=== PATIENT | female | born 1995 | race Caucasian/White ===

== ENCOUNTER 2019-04-18 11:15 | Emergency (ER) | payer SELFPAY ==
[2019-04-18] MEDS ORDERED: NA CHLORIDE 0.9% 1,000 ML ONE (11:54)
[2019-04-18 12:23] LABS: Absolute Lymphocytes (CBC) 1.9 K/uL (0.7-4.9); Basophils % 0.6 % (0-1.3); Hematocrit 42.7 % (36.0-45.0); Lymphocytes % 19.3 % (15.3-44.8); MPV 8.3 fL (7.6-11.3)
[2019-04-18 12:24] LABS: Urine Bacteria 20-50 /HPF (<20); Urine RBC >50 /HPF (NONE SEEN)
[2019-04-18 12:25] LABS: Urine Culture Reflex Order NOT NEEDED
[2019-04-18 12:44] LABS: Bilirubin Direct 0.1 mg/dL (0-0.2); Bilirubin Total 0.4 mg/dL (0.2-1.0); Potassium 4.3 mmol/L (3.5-5.1); Protein, Total 7.8 g/dL (6.4-8.2)
[2019-04-18 13:31] LABS: Urine Blood 3+ (NEG); Urine Glucose NEGATIVE (NEG); Urine Protein 2+ (NEG); Urine Specific Gravity 1.025 (1.005-1.030); Urine pH 6.5 (5.0-7.0)
--- NOTE | 2019-04-18 13:36 | RAD REPORT ---
EXAM DESCRIPTION: CT - Abdomen Pelvis W Contrast - 04/18/2019 1:12 pm CLINICAL HISTORY: Abdominal pain with dysuria COMPARISON: none. TECHNIQUE: Computed axial tomography of the abdomen pelvis was obtained. 100 cc Isovue-300 was admin istered intravenously. Oral contrast was not requested which limits evaluation of bowel. All CT scans are performed using dose optimization technique as appropriate and may include automated exposure control or mA/KV adjustment according to patient size. FINDINGS: Mild fatty liver Spleen, pancreas, adrenal and kidneys appear unremarkable. There is no evidence of diverticulitis. IMPRESSION: No acute abnormality is displayed.
--- NOTE | 2019-04-18 14:21 | ER ---
Nurse's Notes [facility] Name: Sharona Jovel Age: 23 yrs Sex: Female : 1995 Arrival Date: 04/18/2019 Time: 11:16 Bed 19 Private MD: Diagnosis: Urinary tract infection, site not specified Presentation: 04/18 11:27 Presenting complaint: Patient states: painful urination, dark urine, and blood in ch urine, started yesterday. I have had UTI before but nothing like this. Transition of care: patient was not received from another setting of care. Onset of symptoms was April 17, 2019. Risk Assessment: Do you want to hurt yourself or someone else? Patient reports no desire to harm self or others. Initial Sepsis Screen: Does the patient meet any 2 criteria? No. Patient's initial sepsis screen is negative. Does the patient have a suspected source of infection? No. Patient's initial sepsis screen is negative. Care prior to arrival: None. 11:27 Method Of Arrival: Ambulatory 11:27 Acuity: BONNIE 3 Triage Assessment: 11:29 General: Appears in no apparent distress. comfortable, Behavior is calm, cooperative, ch appropriate for age. Pain: Complains of pain in groin. 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 - Social history:: Smoking status: Patient/guardian denies using tobacco, Patient/guardian denies using alcohol, street drugs. - Ebola Screening: : Patient negative for fever greater than or equal to 101.5 degrees Fahrenheit, and additional compatible Ebola Virus Disease symptoms Patient denies exposure to infectious person Patient denies travel to an Ebola-affected area in the 21 days before illness onset No symptoms or risks identified at this time. Screenin:45 Abuse screen: Denies threats or abuse. Denies injuries from another. Nutritional hb screening: No deficits noted. Tuberculosis screening: No symptoms or risk factors identified. Fall Risk None identified. Assessment: 11:45 General: Appears in no apparent distress. Behavior is calm, cooperative. Pain: Pain hb currently is 8 out of 10 on a pain scale. Neuro: Level of Consciousness is awake, alert, obeys commands, Oriented to person, place, time, situation. Cardiovascular: Heart tones S1 S2 present Capillary refill < 3 seconds Patient's skin is warm and dry. Respiratory: Airway is patent Respiratory effort is even, unlabored, Respiratory pattern is regular, symmetrical, Breath sounds are clear bilaterally. GI: No signs and/or symptoms were reported involving the gastrointestinal system. : Reports pain with urination. EENT: No signs and/or symptoms were reported regarding the EENT system. Derm: Skin is intact, is healthy with good turgor, Skin is pink, warm \T\ dry. Musculoskeletal: No signs and/or symptoms reported regarding the musculoskeletal system. 12:45 Reassessment: Patient appears in no apparent distress at this time. Patient and/or hb family updated on plan of care and expected duration. Pain level reassessed. Patient is alert, oriented x 3, equal unlabored respirations, skin warm/dry/pink. 13:45 Reassessment: Patient appears in no apparent distress at this time. No changes from previously documented assessment. Patient and/or family updated on plan of care and expected duration. Pain level reassessed. Patient is alert, oriented x 3, equal unlabored respirations, skin warm/dry/pink. Vital Signs: 11:26 BP 118 / 86; Pulse 92; Resp 15; Temp 97.4(O); Pulse Ox 99% on R/A; Weight 95.25 kg; Height 5 ft. 6 in. (167.64 cm); Pain 8/10; 12:00 BP 117 / 78; Pulse 86; Resp 16; Pulse Ox 100% on R/A; hb 13:00 BP 114 / 74; Pulse 75; Resp 16; Pulse Ox 99% on R/A; hb 14:00 BP 121 / 75; Pulse 78; Resp 15; Pulse Ox 100% on R/A; hb 11:26 Body Mass Index 33.89 (95.25 kg, 167.64 cm) ED Course: 11:16 Patient arrived in ED. as 11:27 Triage completed. 11:29 Arm band placed on left wrist. Patient placed in an exam room, on a stretcher. 11:31 Pancho Peña NP is PHCP. pm1 11:31 Santiago Levy MD is Attending Physician. pm1 11:36 Dixie Galeas RN is Primary Nurse. hb 12:15 Inserted saline lock: 20 gauge in left antecubital area, using aseptic technique. hb ,using aseptic technique. by Ron BAZAN Blood collected. 12:18 Patient has correct armband on for positive identification. Bed in low position. Call hb light in reach. Side rails up X 1. 13:14 CT Abd/Pelvis - IV Contrast Only In Process Unspecified. EDMS 14:42 No provider procedures requiring assistance completed. IV discontinued, intact, hb bleeding controlled, No redness/swelling at site. Pressure dressing applied. Administered Medications: 12:17 Drug: NS 0.9% 1000 ml Route: IV; Rate: 1000 ml; Site: left antecubital; hb 13:15 Follow up: Response: No adverse reaction; IV Status: Completed infusion; IV Intake: hb 1000ml Intake: 13:15 IV: 1000ml; Total: 1000ml. hb Outcome: 14:19 Discharge ordered by MD. pm1 14:42 Discharged to home ambulatory. hb 14:42 Condition: stable 14:42 Discharge instructions given to patient, Instructed on discharge instructions, follow up and referral plans. medication usage, Demonstrated understanding of instructions, follow-up care, medications, Prescriptions given X 2. 14:43 Patient left the ED. hb Addendum: 04/22/2019 17:50 Addendum: Culture Results: Positive urine culture. Bacteria is resistant to, has s s intermediate sensitivity, or is not tested against prescribed antibiotics. Report given to ANGEL for further evaluation and then to chief warden for follow up with patient. Phone call Attempt #1 called patient to discuss culture report. Patient verbalizes understanding importance of following up with PCP as soon as possible in order to receive appropriate treatment for ESBL. Patient states she recently moved and will try to call around tomorrow to clinic for appointment and will call back with fax number in order to obtain culture report. Signatures: Dispatcher [employer] EDSC Jacquelyn Navas RN RN ch Martinez, Amelia as Smirch, Shelby, RN RN Pancho Peña NP SEED SPECIALIST pm1 Dixie Galeas RN RN Corrections: (The following items were deleted from the chart) 04/18 14:43 14:42 Patient did not have IV access during this emergency room visit. hb hb
--- NOTE | 2019-04-18 14:21 | EDPHYS ---
Physician Documentation [facility] Name: Sharona Jovel Age: 23 yrs Sex: Female : 1995 Arrival Date: 04/18/2019 Time: 11:16 Bed 19 Private MD: ED Physician Santiago Levy HPI: 04/18 12:36 This 23 yrs old Female presents to ER via Ambulatory with complaints of pm1 Urinary Problem. 12:36 The patient presents with urinary symptoms, dysuria. Onset: The symptoms/episode pm1 began/occurred yesterday. Modifying factors: The symptoms are alleviated by nothing, the symptoms are aggravated by urinating. Associated signs and symptoms: Pertinent positives: dysuria, hematuria, Pertinent negatives: fever, vaginal bleeding. Severity of symptoms: in the emergency department the symptoms are actually worse. The patient is sexually active, does not use protection during intercourse. The patient has experienced similar episodes in the past, a few times. The patient has not recently seen a physician. 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 - Social history:: Smoking status: Patient/guardian denies using tobacco, Patient/guardian denies using alcohol, street drugs. - Ebola Screening: : Patient negative for fever greater than or equal to 101.5 degrees Fahrenheit, and additional compatible Ebola Virus Disease symptoms Patient denies exposure to infectious person Patient denies travel to an Ebola-affected area in the 21 days before illness onset No symptoms or risks identified at this time. ROS: 12:36 Positive for burning with urination. pm1 12:36 Constitutional: Negative for fever, chills, and weight loss, Eyes: Negative for injury, pain, redness, and discharge, ENT: Negative for injury, pain, and discharge, Neck: Negative for injury, pain, and swelling, Cardiovascular: Negative for chest pain, palpitations, and edema, Respiratory: Negative for shortness of breath, cough, wheezing, and pleuritic chest pain. 12:36 Back: Negative for injury and pain, MS/Extremity: Negative for injury and deformity, Skin: Negative for injury, rash, and discoloration, Neuro: Negative for headache, weakness, numbness, tingling, and seizure. 12:36 Abdomen/GI: Positive for abdominal pain, of the suprapubic area, Negative for nausea, vomiting, and diarrhea. Exam: 12:36 Constitutional: This is a well developed, well nourished patient who is awake, alert, pm1 and in no acute distress. Head/Face: Normocephalic, atraumatic. Eyes: Pupils equal round and reactive to light, extra-ocular motions intact. Lids and lashes normal. Conjunctiva and sclera are non-icteric and not injected. Cornea within normal limits. Periorbital areas with no swelling, redness, or edema. ENT: Nares patent. No nasal discharge, no septal abnormalities noted. Tympanic membranes are normal and external auditory canals are clear. Oropharynx with no redness, swelling, or masses, exudates, or evidence of obstruction, uvula midline. Mucous membranes moist. Neck: Trachea midline, no thyromegaly or masses palpated, and no cervical lymphadenopathy. Supple, full range of motion without nuchal rigidity, or vertebral point tenderness. No Meningismus. Chest/axilla: Normal chest wall appearance and motion. Nontender with no deformity. No lesions are appreciated. Cardiovascular: Regular rate and rhythm with a normal S1 and S2. No gallops, murmurs, or rubs. Normal PMI, no JVD. No pulse deficits. Respiratory: Lungs have equal breath sounds bilaterally, clear to auscultation and percussion. No rales, rhonchi or wheezes noted. No increased work of breathing, no retractions or nasal flaring. 12:36 Back: No spinal tenderness. No costovertebral tenderness. Full range of motion. Skin: Warm, dry with normal turgor. Normal color with no rashes, no lesions, and no evidence of cellulitis. MS/ Extremity: Pulses equal, no cyanosis. Neurovascular intact. Full, normal range of motion. 12:36 Abdomen/GI: Inspection: abdomen appears normal, Bowel sounds: normal, Palpation: soft, mild abdominal tenderness, in the suprapubic area, mass, is not appreciated, rebound tenderness, is not appreciated. 12:36 Neuro: Orientation: is normal, Motor: is normal, moves all fours. Vital Signs: 11:26 BP 118 / 86; Pulse 92; Resp 15; Temp 97.4(O); Pulse Ox 99% on R/A; Weight 95.25 kg; ch Height 5 ft. 6 in. (167.64 cm); Pain 8/10; 12:00 BP 117 / 78; Pulse 86; Resp 16; Pulse Ox 100% on R/A; hb 13:00 BP 114 / 74; Pulse 75; Resp 16; Pulse Ox 99% on R/A; hb 14:00 BP 121 / 75; Pulse 78; Resp 15; Pulse Ox 100% on R/A; hb 11:26 Body Mass Index 33.89 (95.25 kg, 167.64 cm) ch MDM: 11:31 Patient medically screened. pm1 14:18 Data reviewed: vital signs. Data interpreted: Pulse oximetry: on room air is 100 %. pm1 Interpretation: normal. Counseling: I had a detailed discussion with the patient and/or guardian regarding: the historical points, exam findings, and any diagnostic results supporting the discharge/admit diagnosis, lab results, radiology results, the need for outpatient follow up, to return to the emergency department if symptoms worsen or persist or if there are any questions or concerns that arise at home. 04/18 11:35 Order name: Urine Microscopic Only; Complete Time: 12:41 04/18 11:35 Order name: Urine Culture 04/18 11:45 Order name: Basic Metabolic Panel; Complete Time: 13:45 pm1 04/18 11:45 Order name: CBC with Diff; Complete Time: 12:41 pm04/18 11:45 Order name: Creatinine for Radiology; Complete Time: 13:45 pm04/18 11:45 Order name: Hepatic Function; Complete Time: 13:45 pm04/18 11:35 Order name: Urine Dipstick-Ancillary (obtain specimen); Complete Time: 11:45 iw 04/18 11:45 Order name: Lipase; Complete Time: 13:45 pm1 04/18 11:45 Order name: IV Saline Lock; Complete Time: 12:17 pm04/18 11:45 Order name: Labs collected and sent; Complete Time: 12:17 pm04/18 11:45 Order name: CT Abd/Pelvis - IV Contrast Only; Complete Time: 14:09 pm1 04/18 12:18 Order name: Urine Dipstick--Ancillary (enter results) bd 04/18 12:18 Order name: Urine --Ancillary (enter results) bd 04/18 11:45 Order name: Urine Test (obtain specimen); Complete Time: 11:45 pm1 Administered Medications: 12:17 Drug: NS 0.9% 1000 ml Route: IV; Rate: 1000 ml; Site: left antecubital; hb 13:15 Follow up: Response: No adverse reaction; IV Status: Completed infusion; IV Intake: hb 1000ml Disposition: 16:24 Co-signature as Attending Physician, Santiago Levy MD. rn Disposition: 04/18/19 14:19 Discharged to Home. Impression: Urinary tract infection, site not specified. - Condition is Stable. - Discharge Instructions: Urinary Tract Infection, Adult. - Prescriptions for Pyridium 200 mg Oral Tablet - take 1 tablet by ORAL route every 8 hours for 3 days; 9 tablet. Bactrim DS 800- 160 mg Oral Tablet - take 1 tablet by ORAL route every 12 hours for 10 days; 20 tablet. - Medication Reconciliation Form, Thank You Letter, Antibiotic Education, Prescription Opioid Use form. - Follow up: Emergency Department; When: As needed; Reason: Worsening of condition. Follow up: Private Physician; When: 2 - 3 days; Reason: Recheck today's complaints, Continuance of care, Re-evaluation by your physician. - Problem is new. - Symptoms have improved. Signatures: Dispatcher [employer] EDMS Jacquelyn Navas RN RN Nuris Blake RN RN iw Nieto, Roman, MD MD rn Marinas, Patrick, JUJU PATCH PRESS OPERATOR pm1 Dixie Galeas RN RN hb Corrections: (The following items were deleted from the chart) 14:43 14:19 04/18/2019 14:19 Discharged to Home. Impression: Urinary tract infection, site hb not specified. Condition is Stable. Forms are Medication Reconciliation Form, Thank You Letter, Antibiotic Education, Prescription Opioid Use. Follow up: Emergency Department; When: As needed; Reason: Worsening of condition. Follow up: Private Physician; When: 2 - 3 days; Reason: Recheck today's complaints, Continuance of care, Re-evaluation by your physician. Problem is new. Symptoms have improved. pm1
== END 2019-04-18 14:43 | disposition home or self-care (01) ==
LOC: ER 11:15
DX: N39.0 Urinary tract infection, site not specified (principal); Z88.1 Allergy status to other antibiotic agents
CPT/HCPCS: 36415; 74177; 80048; 80076; 81003; 81015; 81025; 83690; 85025; 87077; 87086; 87088; 87186; 96360; 99284; J7030; Q9967

== ENCOUNTER 2019-04-23 13:23 | Emergency (ER) | payer SELFPAY ==
--- NOTE | 2019-04-23 14:50 | EDPHYS ---
Physician Documentation [facility] Name: Sharona Jovel Age: 23 yrs Sex: Female : 1995 Arrival Date: 04/23/2019 Time: 13:26 Bed 19 Private MD: ED Physician Santiago Levy HPI: 04/23 14:30 This 23 yrs old Female presents to ER via Ambulatory with complaints of jmm Urinary Problem. 14:30 The patient presents with urinary symptoms, dysuria. Onset: The symptoms/episode jmm began/occurred gradually, 2 week(s) ago. Modifying factors: The symptoms are alleviated by nothing, the symptoms are aggravated by nothing. Associated signs and symptoms: Pertinent negatives: fever. This is a 23 year old female with no chronic medical conditions that presents to the ED with complaints of ongoing dysura for the past 2 weeks. Patient was evaluated Monday and prescribed bactrim. Patient currently denies fever, vomiting, flank pain, or abdominal pain. . 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 - Social history:: Smoking status: Patient/guardian denies using tobacco. - Ebola Screening: : No symptoms or risks identified at this time. ROS: 14:30 Constitutional: Negative for fever, chills, and weight loss, Cardiovascular: Negative jmm for chest pain, palpitations, and edema, Respiratory: Negative for shortness of breath, cough, wheezing, and pleuritic chest pain, Abdomen/GI: Negative for abdominal pain, nausea, vomiting, diarrhea, and constipation. 14:30 : Positive for urinary symptoms. 14:30 All other systems are negative. Exam: 14:30 Constitutional: This is a well developed, well nourished patient who is awake, alert, jmm and in no acute distress. Head/Face: atraumatic. Eyes: EOMI, no conjunctival erythema appreciated ENT: Moist Mucus Membranes Neck: Trachea midline, Supple Chest/axilla: Normal chest wall appearance and motion. Cardiovascular: Regular rate and rhythm. No edema appreciated Respiratory: Normal respirations, no respiratory distress appreciated Abdomen/GI: Non distended, soft Back: Normal ROM Skin: General appearance color normal MS/ Extremity: Moves all extremities, no obvious deformities appreciated, no edema noted to the lower extremities Neuro: Awake and alert, normal gait Psych: Behavior is normal, Mood is normal, Patient is cooperative and pleasant 14:30 Back: CVA tenderness, is absent. Vital Signs: 13:41 BP 130 / 82; Pulse 74; Resp 16; Temp 97.4; Pulse Ox 100% on R/A; Weight 95.25 kg; la1 Height 5 ft. 2 in. (157.48 cm); 15:05 BP 114 / 75; Pulse 85; Resp 16; Temp 97.6(TE); Pulse Ox 94% ; mh5 13:41 Body Mass Index 38.41 (95.25 kg, 157.48 cm) la1 MDM: 14:30 Patient medically screened. [facility] 14:47 Data reviewed: vital signs, nurses notes. Counseling: I had a detailed discussion with justice the patient and/or guardian regarding: the historical points, exam findings, and any diagnostic results supporting the discharge/admit diagnosis, lab results, the need for outpatient follow up, to return to the emergency department if symptoms worsen or persist or if there are any questions or concerns that arise at home. ED course: Patient is alert and non toxic in appearance in the ED. Patient prescribed oral abx based on culture results. . Administered Medications: 15:15 Drug: DiFLUcan 150 mg Route: PO; iw 15:20 Follow up: Response: No adverse reaction ph Disposition: 18:31 Co-signature as Attending Physician, Santiago Levy MD. rn Disposition: 04/23/19 14:49 Discharged to Home. Impression: Urinary tract infection, site not specified. - Condition is Stable. - Discharge Instructions: Urinary Tract Infection, Adult. - Prescriptions for Macrobid 100 mg Oral Capsule - take 1 capsule by ORAL route every 12 hours for 10 days; 20 capsule. - Medication Reconciliation Form, Thank You Letter, Antibiotic Education, Prescription Opioid Use form. - Follow up: Private Physician; When: 2 - 3 days; Reason: Recheck today's complaints, Continuance of care, Re-evaluation by your physician. Signatures: Carlos Doan PA PA jmm Williams, Irene, RN RN iw Nieto, Roman, MD MD rn Attema, Maciel, RN RN la1 Jo Marques RN ph Corrections: (The following items were deleted from the chart) 15:15 14:49 04/23/2019 14:49 Discharged to Home. Impression: Urinary tract infection, site iw not specified. Condition is Stable. Forms are Medication Reconciliation Form, Thank You Letter, Antibiotic Education, Prescription Opioid Use. Follow up: Private Physician; When: 2 - 3 days; Reason: Recheck today's complaints, Continuance of care, Re-evaluation by your physician. m
--- NOTE | 2019-04-23 14:50 | ER ---
Nurse's Notes [facility] Name: Sharona Jovel Age: 23 yrs Sex: Female : 1995 Arrival Date: 04/23/2019 Time: 13:26 Bed 19 Private MD: Diagnosis: Urinary tract infection, site not specified Presentation: 04/23 13:42 Presenting complaint: Patient states: I think I need IV antiobiotics for my UTI. They la1 should have the culture report here. Transition of care: patient was not received from another setting of care. Onset of symptoms was April 23, 2019. Risk Assessment: Do you want to hurt yourself or someone else? Patient reports no desire to harm self or others. Initial Sepsis Screen: Does the patient meet any 2 criteria? No. Patient's initial sepsis screen is negative. Does the patient have a suspected source of infection? No. Patient's initial sepsis screen is negative. Care prior to arrival: None. 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 - Social history:: Smoking status: Patient/guardian denies using tobacco. - Ebola Screening: : No symptoms or risks identified at this time. Screenin:00 Abuse screen: Denies threats or abuse. Denies injuries from another. Nutritional ph screening: No deficits noted. Tuberculosis screening: No symptoms or risk factors identified. Fall Risk None identified. Assessment: 15:00 General: Appears in no apparent distress. uncomfortable, well groomed, Behavior is ph calm, cooperative, appropriate for age. Pain: Complains of pain in suprapubic area. Neuro: Level of Consciousness is awake, alert, obeys commands, Oriented to person, place, time, situation. Cardiovascular: Capillary refill < 3 seconds in bilateral fingers Patient's skin is warm and dry. Respiratory: Airway is patent Respiratory effort is even, unlabored. GI: Patient currently denies diarrhea, nausea, vomiting. : Reports burning with urination, pain in suprapubic area urinary frequency, vaginal itching. Derm: Skin is intact, is healthy with good turgor, Skin is pink, warm \\T\\ dry. Musculoskeletal: Circulation, motion, and sensation intact. Range of motion: intact in all extremities. Vital Signs: 13:41 BP 130 / 82; Pulse 74; Resp 16; Temp 97.4; Pulse Ox 100% on R/A; Weight 95.25 kg; la1 Height 5 ft. 2 in. (157.48 cm); 15:05 BP 114 / 75; Pulse 85; Resp 16; Temp 97.6(TE); Pulse Ox 94% ; mh5 13:41 Body Mass Index 38.41 (95.25 kg, 157.48 cm) ri1 ED Course: 13:26 Patient arrived in ED. mr 13:40 Arm band placed on left wrist. la1 13:42 Triage completed. ri1 14:21 Jo Marques RN is Primary Nurse. ph 14:24 Carlos Doan PA is PHCP. [facility] 14:24 Santiago Levy MD is Attending Physician. [facility] 15:05 Patient has correct armband on for positive identification. Bed in low position. Call 5 light in reach. Pulse ox on. NIBP on. 15:15 No provider procedures requiring assistance completed. Patient did not have IV access ph during this emergency room visit. Administered Medications: 15:15 Drug: DiFLUcan 150 mg Route: PO; iw 15:20 Follow up: Response: No adverse reaction ph Outcome: 14:49 Discharge ordered by . [facility] 15:15 Patient left the ED. iw 15:15 Discharged to home ambulatory. ph 15:15 Condition: good 15:15 Discharge instructions given to patient, Instructed on discharge instructions, follow up and referral plans. medication usage, Demonstrated understanding of instructions, follow-up care, medications, Prescriptions given X 1. Signatures: Carlos Doan PA PA jmm Rivera, Mary mr Williams, Irene, RN RN iw Attema, Lee, RN RN [facility] Jo Marques RN RN ph Martinez, Maria [facility]
[2019-04-23] MEDS ORDERED: FLUCONAZOLE 100 MG TAB ONE (15:07)
[2019-04-23 15:23] VITALS: BP 114/75; TEMP 97.6; O2SAT 94
== END 2019-04-23 15:15 | disposition home or self-care (01) ==
LOC: ER 13:23
DX: N39.0 Urinary tract infection, site not specified (principal)
CPT/HCPCS: 99283